=== PATIENT | male | born 1980 | race Caucasian/White ===

== ENCOUNTER 2017-08-30 10:16 | Emergency (ER) | payer OTHER ==
[~2017-08-30] VITALS: Ht 167.6 cm; Wt 81.2 kg
[2017-08-30 10:26] VITALS: Ht 167.6 cm; Wt 81.2 kg
[2017-08-30 11:48] LABS: BASOPHIL % 0.5 % (0-2); PLATELET COUNT 158 x10^3mcL (130-400); RED CELL DISTRIBUTION WIDTH 13.6 % (11.5-14.5)
[2017-08-30 11:58] LABS: CHLORIDE SERUM 104 mmol/L (98-107); CREATININE SERUM 0.7 mg/dL (0.7-1.3); GFR1 > 60 mL/min; GLUCOSE SERUM 95 mg/dL (74-106); POTASSIUM SERUM 4.3 mmol/L (3.5-5.1); SODIUM SERUM 139 mmol/L (136-145)
[2017-08-30 12:03] LABS: ALKALINE PHOSPHATASE 56 U/L (46-116); ALT/SGPT 36 U/L (16-63); AST/SGOT 32 U/L (15-37); BILIRUBIN TOTAL 1.78 mg/dL (0.20-1.00); TOTAL PROTEIN, SERUM 7.2 g/dL (6.4-8.2)
[2017-08-30 12:25] VITALS: BP 127/64
== END 2017-08-30 12:25 | disposition short-term general hospital (02) ==
LOC: ED 10:16
PROVIDERS: Emergency Medicine
DX: S02.11HA Other fracture of occiput, left side, initial encounter for closed fracture (principal); W22.8XXA Striking against or struck by other objects, initial encounter; Y93.89 Activity, other specified; Y92.89 Other specified places as the place of occurrence of the external cause; Y99.8 Other external cause status
CPT/HCPCS: G0480; J1100; J1885; J2150; J3490